=== PATIENT | female | born 2000 | race Native Hawaiian/Other Pacific Islander ===

== ENCOUNTER 2021-01-23 14:59 | Emergency (ER) | payer OTHER, SELFPAY ==
[2021-01-23 15:06] VITALS: BP 126/77; PULSE 90; RESP 18; TEMP 36.7; O2SAT 98; BMI 37.5
--- NOTE | 2021-01-23 15:44 | ED_ITS ---
HPI - General Adult General Chief complaint: Eye Problems Stated complaint: FALL WORK RELATED Time Seen by Provider: 01/23/21 15:30 Source: patient Mode of arrival: ambulatory Limitations: no limitations History of Present Illness HPI narrative: 20 y/o female presenting with left eye pain, swelling and bruising after she hit her face on a machine at work 2 days ago. She struck the side of her head on the latter day area against a metal machine at work when she went to stand up. She noticed blood on the white part of her eye when she woke up this morning so she wanted to come to the ER for further evaluation. She d enies headache, eye pain, FB sensation, or vision changes. She has bruising and some swelling below her left eye which she states is worse than yesterday. She has not taken any medications or used any ice to the area. MD complaint: red eye w/ swelling and bruising Onset (ago): day(s) (2) Location: head, face and eyes Radiation: non-radiation Severity: moderate Quality: aching Pain Consistency: intermittent Relieving factors: none Exacerbating factors: none Associated symptoms: denies other symptoms Treatments prior to arrival: none Related Data Allergies Allergy/AdvReac Type Severity Reaction Status Date / Time No Known Allergies Allergy Verified 01/23/21 15:57 Review of Systems Review of Systems: Constitutional: No Fever, No Chills ENT/Mouth: No sore throat, No Rhinorrhea, No Swallowing Difficulty Eyes: No Eye Pain, + Swelling, + Redness Gastrointestinal: No Nausea, No Vomiting Skin: + Skin Lesions, No rash Neuro: No Weakness, No Numbness, No Dizziness, No Headache Psych: No Anxiety/Panic, No Depression Heme/Lymph: + Bruising, No Lymphadenopathy PMFSH Past Medical History Attestation statement: The following information was validated with the patient. Medical History (Updated 01/23/21 @ 16:04 by PATRICK Mancera) No known health problems Social History Social History Advance Directives: No Advance Directives Information Provided: No Patient : No Physical Exam Vital Signs: Vital Signs: Last Vital Signs Temp 98.1 F 01/23/21 15:06 Pulse 90 01/23/21 15:06 Resp 18 01/23/21 15:06 BP 126/77 01/23/21 15:06 Pulse Ox 98 01/23/21 15:06 Body Mass Index 37.5 Appearance: Alert. Oriented X3. No acute distress. Eyes: mild ecchymosis and edema below left eye. subconjunctival hemorrhage lateral left eye. Pupils equal, round and reactive to light. PERRLA. EOMI without pain. left latter day with mild edema and superficial abrasion. no orbital tenderness. ENT: Pharynx normal. No dental trauma. Neck: Normal inspection. Neck supple. CVS: Normal heart rate and rhythm. Pulses normal. Respiratory: No respiratory distress. Breath sounds normal. Skin: Skin warm and dry. Normal skin color. Normal skin turgor. No rashes. Neuro: Oriented X 3. No motor deficit. No sensory deficit. Non-focal. Course Course Course Narrative: 20 y/o female presenting with traumatic left eye ecchymosis and blood in her eye - consistent with subconjunctival hemorrhage. No vision changes or eye pain. No evidence of preseptal or periorbital cellulitis. Doubt orbital fracture given it is non-tender on exam. No need for imaging at this time. She was counseled on expected management of subconjuntival hemorrhage. Work note provided. Stable for discharge. Critical Care Time Critical Care Time Critical Care Time: No Discharge Plan Discharge Clinical Impression: Subconjunctival hemorrhage Qualifiers: Laterality: left Qualified Code(s): H11.32 - Conjunctival hemorrhage, left eye Traumatic black eye of left side Qualifiers: Encounter type: initial encounter Qualified Code(s): S00.12XA - Contusion of le ft eyelid and periocular area, initial encounter Patient Disposition: Home, Self-Care Instructions: Subconjunctival Hemorrhage (ED), Black Eye (ED) Additional Instructions: Recommend ice to the area several times per day. The blood in your eye will slowly absorb on its own. Take Motrin and/or Tylenol as needed for pain. Follow up with your doctor as needed. If you have worsening pain or headache, vision changes, or any other concerning issues come back to the ER for further evaluation. Stand Alone Forms: Work/School Release Interventions: ED Discharge Assessment Last Done: 01/23/21 16:12 Discharge Date/Time: 01/23/21 16:13
== END 2021-01-23 16:13 | disposition home or self-care (01) ==
PROVIDERS: Emergency Provider Emergency Medicine Emergency Medical Services
DX: H11.32 Conjunctival hemorrhage, left eye (principal); S00.12XA Contusion of left eyelid and periocular area, initial encounter; W31.9XXA Contact with unspecified machinery, initial encounter; Y93.89 Activity, other specified; Y92.513 Shop (commercial) as the place of occurrence of the external cause; Y99.0 Civilian activity done for income or pay
CPT/HCPCS: 99283

== ENCOUNTER 2021-04-20 15:03 | Emergency (ER) | payer OTHER, SELFPAY ==
[2021-04-20 17:00] VITALS: BP 134/88; PULSE 86; RESP 16; TEMP 37; O2SAT 99; BMI 37.5
[2021-04-20 17:24] LABS: MANUAL DIFF FLAG NO
[2021-04-20 17:26] LABS: Basophils Percent Auto 0.3 % (0-2); Eosinophils Absolute Auto 0.3 X10*3/uL (0.0-0.4); Eosinophils Percent Auto 2.5 % (0-4); Hematocrit 43.7 % (37-47); Hemoglobin 14.4 g/dl (12.0-16.0); Imm Gran Abs Auto 0.09 X10*3/uL (0.00-0.03); Imm Gran Pct Auto 0.8 % (0.0-0.4); Lymphocytes Absolute Auto 3.2 X10*3/uL (1.2-4.9); Mean Corpuscular Hemoglobin 29.5 pg (27.0-33.0); Mean Corpuscular Volume 89.5 fL (80-98); Mean Platelet Volume 11.2 fL (9.4-12.3); Monocytes Absolute Auto 0.7 X10*3/uL (0.1-1.2); Monocytes Percent Auto 5.6 % (2-11); Neutrophils Absolute Auto 7.6 X10*3/uL (2.0-8.3); Neutrophils Percent Auto 63.8 % (45-73); Platelet Count 378 X10*3/uL (160-400); Red Blood Count 4.88 X10*6/uL (4.20-5.50); Red Cell Distribution Width 12.5 % (11.0-16.0); White Blood Count 11.8 X10*3/uL (4.8-10.8)
[2021-04-20 17:33] LABS: Glucose Urine UA NEG (NEG); Leukocyte Esterase Urine NEG (NEG); Nitrite Urine NEG (NEG); UACC Culture Trigger NO; Urine Blood 1+ (NEG); Urine Ketones NEG (NEG); Urine Protein NEG (NEG-TRACE)
[2021-04-20 17:35] LABS: Appearance Urine CLEAR; Color Urine STRAW
[2021-04-20 17:36] LABS: UPreg QC Valid YES; Urine Pregnancy NEGATIVE (NEGATIVE)
[2021-04-20 17:57] LABS: Anion Gap 13 (12-20); Blood Urea Nitrogen 8 mg/dL (9-16); Carbon Dioxide 27 mmol/L (22-29); Chloride 104 mmol/L (96-108); Creatinine Clr Calc Pharmacy 150.8; Estimated Glomerular Filt Rate > 60; Glucose Random 86 mg/dL (60-115); Potassium 4.4 mmol/L (3.3-5.1); Sodium 140 mmol/L (135-145)
[2021-04-20 18:39] LABS: Mucus Urine TRACE /LPF; RBC Urine 0-2 /HPF (0); Squamous Epithelial Cell Urine 1+ /LPF; WBC Urine 0 /HPF (0-4)
--- NOTE | 2021-04-20 20:13 | PC.NURSE ---
attempted to call into ED. NO answer in Waiting room
== END 2021-04-20 20:34 | disposition left against medical advice (07) ==
PROVIDERS: Emergency Provider Emergency Medicine
DX: R11.0 Nausea (principal); R10.9 Unspecified abdominal pain
CPT/HCPCS: 36415; 80048; 81001; 81025; 85025; 99283